=== PATIENT | female | born 2000 | race Caucasian/White ===

== ENCOUNTER 2018-09-28 20:26 | Emergency (ER) | payer BC ==
[2018-09-28] MEDS ORDERED: Thiamine 200 MG/2 ML MDV IM ONE (20:41)
--- NOTE | 2018-09-28 20:41 | EDM.PDOC ---
ED HPI GENERAL MEDICAL PROBLEM - General Stated Complaint: NAUSEA/LT HAND AND LEFT SIDE OF FACE WENT NUMB Time Seen by Provider: 09/28/18 20:26 Source of Information: Reports: Patient, Family History Limitations: Reports: No Limitations - History of Present Illness INITIAL COMMENTS - FREE TEXT/NARRATIVE: 18 y.o.w.f came to the ed with her SO due to facial numbness, nausea and not feeling well. Pt is on Adderall. No Trauma, No SOB or chest pain. Pt was ambulating fine. Last Adderall yesterday. Denied possible food poisoning, no SOB or CP or any other acute med issues. Denies . BP 131/67 RR 16 Pulse ox 100% on RA Temp 36.8 Pulse 88 Onset Date: 09/28/18 Onset Time: 20:00 Duration: Hour(s):, Intermittent Location: Reports: Face, Generalized Quality: Reports: Other (tingling,numb) Improves with: Reports: None Worsens with: Reports: None Context: Reports: Other (Pt takes adderall) Associated Symptoms: Reports: No Other Symptoms - Related Data Allergies Allergy/AdvReac Type Severity Reaction Status Date / Time cefprozil [From Cefzil] Allergy Rash Verified 09/28/18 22:16 Home Meds: Home Meds Desog-E.Estradiol/E.Estradiol [Desogestr-Eth Estrad Eth Estra] 1 tab PO DAILY [History] Dextroamphetamine/Amphetamine [Adderall 10 mg Tablet] 10 mg PO DAILY 09/28/18 [ History] Lisdexamfetamine [Vyvanse] 50 mg PO DAILY 09/28/18 [History] Spironolactone 50 mg PO BID 09/28/18 [History] ED ROS GENERAL - Review of Systems Review Of Systems: See Below Constitutional: Reports: No Symptoms HEENT: Reports: No Symptoms Respiratory: Reports: No Symptoms Cardiovascular: Reports: No Symptoms Endocrine: Reports: No Symptoms GI/Abdominal: Reports: No Symptoms, Nausea : Reports: No Symptoms Musculoskeletal: Reports: No Symptoms Skin: Reports: No Symptoms Neurological: Reports: Numbness Psychiatric: Reports: No Symptoms Hematologic/Lymphatic: Reports: No Symptoms Immunologic: Reports: No Symptoms ED EXAM, GENERAL - Physical Exam Exam: See Below Exam Limited By: No Limitations General Appearance: Alert, WD/WN, Mild Distress Eye Exam: Bilateral Eye: Normal Inspection Ears: Normal External Exam Ear Exam: Bilateral Ear: Auricle Normal Nose: Normal Inspection, Normal Mucosa, No Blood Throat/Mouth: Normal Inspection, Normal Lips Head: Atraumatic, Normocephalic Neck: Normal Inspection, Supple, Non-Tender Respiratory/Chest: No Respiratory Distress, Lungs Clear, Normal Breath Sounds, Chest Non-Tender Cardiovascular: Normal Peripheral Pulses, Regular Rate, Rhythm, No Edema, No Gallop, No Murmur Peripheral Pulses: 1+: Brachial (R) GI/Abdominal: Normal Bowel Sounds, Soft, Non-Tender (Female) Exam: Deferred Rectal (Female) Exam: Deferred Back Exam: Normal Inspection, Full Range of Motion Extremities: Normal Inspection, Normal Range of Motion Neurological: Alert, Oriented, CN II-XII Intact, Normal Cognition, Normal Gait, Other (facial numbness) Psychiatric: Normal Affect, Normal Mood Skin Exam: Warm, Dry, Intact, Normal Color Lymphatic: No Adenopathy EKG INTERPRETATION EKG Date: 09/28/18 Time: 21:35 Rhythm: NSR Rate (Beats/Min): 85 [place]: Normal P-Wave: Present QRS: Normal ST-T: Normal QT: Normal Comparison: NA - No Prior EKG Course - Vital Signs Text/Narrative:: 18 y.o.w.f came to the ed with her SO due to facial numbness, nausea and not feeling well. Pt is on Adderall. No Trauma, No SOB or chest pain. Pt was ambulating fine. Last Adderall yesterday. Denied possible food poisoning, no SOB or CP or any other acute med issues. Denies . BP 131/67 RR 16 Pulse ox 100% on RA Temp 36.8 Pulse 88 PE: WNWD W F in NAD with nausea and facial numbness, dry mucosal membrane Labs: CBC, BMP nl UA: Urine was contaminates. pt is on her period Impression: Dehydration, anxiety, nausea. Tx: NS, Zofran Reexam: Pt improved 80% after Tx Plan: D/C with instructions Last Recorded V/S: Last Vital Signs Temp 36.9 C 09/28/18 22:30 Pulse 90 09/28/18 22:30 Resp 16 09/28/18 22:30 BP 126/65 09/28/18 22:30 Pulse Ox 100 09/28/18 22:30 - Orders/Labs/Meds Orders: Active Orders 24 hr Category Date Time Status EKG Documentation Completion [RC] ASDIRECTED Care 09/28/18 20:59 Active EKG 12 Lead [EK] Routine Ther 09/28/18 20:59 Ordered Labs: Laboratory Tests 09/28/18 09/28/18 09/28/18 Range/Units 21:05 21:05 22:00 WBC 9.4 (4.5-12.0) X10-3/uL RBC 5.35 H (3.23-5.20) x10(6)uL Hgb 15.2 (11.5-15.5) g/dL Hct 44.1 (30.0-51.3) % MCV 82.3 (80-96) fL MCH 28.3 (27.7-33.6) pg MCHC 34.4 (32.2-35.4) g/dL RDW 12.3 (11.5-15.5) % Plt Count 301 (125-369) X10(3)uL MPV 9.1 (7.4-10.4) fL Neut % (Auto) 63.6 (46-82) % Lymph % (Auto) 24.6 (13-37) % [place] % (Auto) 10.3 (4-12) % Eos % (Auto) 1 (1.0-5.0) % Baso % (Auto) 1 (0-2) % Neut # (Auto) 5.9 (1.6-8.3) # Lymph # (Auto) 2.3 (0.6-5.0) # [place] # (Auto) 1.0 (0.0-1.3) # Eos # (Auto) 0.1 (0.0-0.8) # Baso # (Auto) 0.1 (0.0-0.2) # Sodium 140 (135-145) mmol/L Potassium 4.0 (3.5-5.3) mmol/L Chloride 102 (100-110) mmol/L Carbon Dioxide 27 (21-32) mmol/L BUN 9 (7-18) mg/dL Creatinine 0.8 (0.55-1.02) mg/dL Est Cr Clr Drug Dosing TNP Estimated GFR (MDRD) > 60 (>60) BUN/Creatinine Ratio 11.3 (9-20) Glucose 90 (80-116) mg/dL Calcium 9.8 (8.6-10.2) mg/dL Urine Color Yellow (YELLOW) Urine Appearance Slightly cloudy (CLEAR) Urine pH 6.0 (5.0-6.5) Ur Specific [place] 1.020 (1.010-1.025) Urine Protein 30 H (NEGATIVE) mg/dL Urine Glucose (UA) Normal (NORMAL) mg/dL Urine Ketones 150 H (NEGATIVE) mg/dL Urine Occult Blood Moderate H (NEGATIVE) Urine Nitrite Negative (NEGATIVE) Urine Bilirubin Small H (NEGATIVE) Urine Urobilinogen Normal (NEGATIVE) mg/dL Ur Leukocyte Esterase Negative (NEGATIVE) Urine RBC 5-10 H (0-5) Urine WBC 0-5 (0-5) Ur Squamous Epith Cells Few H (NS,R,O) Urine Bacteria Few H (NS) Urine Mucus Moderate H (NS) Urine HCG, Qual (NEGATIVE) Urine Opiates Screen (NEGATIVE) Ur Oxycodone Screen (NEGATIVE) Ur Propoxyphene Screen (NEGATIVE) Ur Barbituates Screen (NEGATIVE) Ur Tricyclics Screen (NEGATIVE) Ur Phencyclidine Scrn (NEGATIVE) Ur Amphetamine Screen (NEGATIVE) Urine MDMA Screen (NEGATIVE) U Benzodiazepines Scrn (NEGATIVE) U Cocaine Metab Screen (NEGATIVE) U Marijuana (THC) Screen (NEGATIVE) 09/28/18 09/28/18 Range/Units 22:00 22:00 WBC (4.5-12.0) X10-3/uL RBC (3.23-5.20) x10(6)uL Hgb (11.5-15.5) g/dL Hct (30.0-51.3) % MCV (80-96) fL MCH (27.7-33.6) pg MCHC (32.2-35.4) g/dL RDW (11.5-15.5) % Plt Count (125-369) X10(3)uL MPV (7.4-10.4) fL Neut % (Auto) (46-82) % Lymph % (Auto) (13-37) % [place] % (Auto) (4-12) % Eos % (Auto) (1.0-5.0) % Baso % (Auto) (0-2) % Neut # (Auto) (1.6-8.3) # Lymph # (Auto) (0.6-5.0) # [place] # (Auto) (0.0-1.3) # Eos # (Auto) (0.0-0.8) # Baso # (Auto) (0.0-0.2) # Sodium (135-145) mmol/L Potassium (3.5-5.3) mmol/L Chloride (100-110) mmol/L Carbon Dioxide (21-32) mmol/L BUN (7-18) mg/dL Creatinine (0.55-1.02) mg/dL Est Cr Clr Drug Dosing Estimated GFR (MDRD) (>60) BUN/Creatinine Ratio (9-20) Glucose (80-116) mg/dL Calcium (8.6-10.2) mg/dL Urine Color (YELLOW) Urine Appearance (CLEAR) Urine pH (5.0-6.5) Ur Specific [place] (1.010-1.025) Urine Protein (NEGATIVE) mg/dL Urine Glucose (UA) (NORMAL) mg/dL Urine Ketones (NEGATIVE) mg/dL Urine Occult Blood (NEGATIVE) Urine Nitrite (NEGATIVE) Urine Bilirubin (NEGATIVE) Urine Urobilinogen (NEGATIVE) mg/dL Ur Leukocyte Esterase (NEGATIVE) Urine RBC (0-5) Urine WBC (0-5) Ur Squamous Epith Cells (NS,R,O) Urine Bacteria (NS) Urine Mucus (NS) Urine HCG, Qual Negative (NEGATIVE) Urine Opiates Screen Negative (NEGATIVE) Ur Oxycodone Screen Negative (NEGATIVE) Ur Propoxyphene Screen Negative (NEGATIVE) Ur Barbituates Screen Negative (NEGATIVE) Ur Tricyclics Screen Negative (NEGATIVE) Ur Phencyclidine Scrn Negative (NEGATIVE) Ur Amphetamine Screen Positive H (NEGATIVE) Urine MDMA Screen Negative (NEGATIVE) U Benzodiazepines Scrn Negative (NEGATIVE) U Cocaine Metab Screen Negative (NEGATIVE) U Marijuana (THC) Screen Negative (NEGATIVE) Meds: Medications Discontinued Medications Generic Name Dose Route Start Last Admin Trade Name Freq PRN Reason Stop Dose Admin Sodium Chloride 1,000 mls @ 999 mls/hr 09/28/18 20:58 09/28/18 21:20 Normal Saline IV 09/28/18 21:58 999 mls/hr .BOLUS ONE Administration Ondansetron HCl 8 mg 09/28/18 22:22 09/28/18 22:25 Zojonathon IVPUSH 09/28/18 22:23 8 mg ONETIME ONE Administration Thiamine HCl 100 mg 09/28/18 20:41 09/28/18 22:08 Vitamin B-1 IM 09/28/18 20:42 Not Given ONETIME ONE Departure - Departure Time of Disposition: 22:42 Disposition: Home, Self-Care 01 Condition: Good Clinical Impression: Dehydration - Discharge Information Instructions: Dehydration, Adult, [id number] Referrals: PCP,Not In Area [Primary Care Provider] - Forms: ED Department Discharge Additional Instructions: Please increase water intake, please f/u. please cont your current meds, come back if your symptoms get worse acutely - My Orders Last 24 Hours: My Active Orders 09/28/18 20:59 EKG Documentation Completion [RC] ASDIRECTED EKG 12 Lead [EK] Routine - Assessment/Plan Last 24 Hours: My Active Orders 09/28/18 20:59 EKG Documentation Completion [RC] ASDIRECTED EKG 12 Lead [EK] Routine
[2018-09-28] MEDS ORDERED: Sodium Chloride 0.9% 1,000 ML IV ONE (20:58)
[2018-09-28] MEDS ORDERED: Ondansetron 4 MG/2 ML SDV IVPUSH ONE (22:22)
== END 2018-09-28 22:50 | disposition home or self-care (01) ==
LOC: FB.ED 20:26
DX: E86.0 Dehydration (principal); F41.9 Anxiety disorder, unspecified; R11.0 Nausea; R20.0 Anesthesia of skin; Z88.1 Allergy status to other antibiotic agents
CPT/HCPCS: 36415; 80048; 80305; 81001; 81025; 85025; 93005; 96361; 96374; 99283; J2405; J7030

== ENCOUNTER 2021-04-13 20:19 | Emergency (ER) | payer OTHER, BC | END 2021-04-13 20:25 | disposition home or self-care (01) | LOC: FB.ED 20:19 | DX: S63.91XA Sprain of unspecified part of right wrist and hand, initial encounter (principal); W23.0XXA Caught, crushed, jammed, or pinched between moving objects, initial encounter | CPT/HCPCS: 73130-RT; 99282; 99283 ==